=== PATIENT | male | born 1980 | race Caucasian/White ===

== ENCOUNTER 2017-02-01 16:34 | Inpatient (IN) | payer OTHER ==
[2017-02-01 18:47] VITALS: BMI 28.1
--- NOTE | 2017-02-01 20:15 | HP ---
CIWA Score - CIWA Score Nausea/Vomitin-Mild Nausea/No Vomiting Muscle Tremors: 2 Anxiety: 2 Agitation: 2 Paroxysmal Sweats: 2 Orientation: 0-Oriented Tacttile Disturbances: 0-None Auditory Disturbances: 2-Mild Harshness/Frighten Visual Disturbances: 1-Very Mild Sensitivity Headache: 1-Very Mild CIWA-Ar Total Score: 13 Admission ROS BHS - HPI Chief Complaint: WITHDRAWAL SYMPTOMS Allergies/Adverse Reactions: Allergies Allergy/AdvReac Type Severity Reaction Status Date / Time No Known Allergies Allergy Verified 02/01/17 19:28 History of Present Illness: 36 Y.O. MAN WITH AN EXTENSIVE HISTORY OF ALCOHOL AND COCAINE DEPENDENCE IS HERE FOR DETOX. HE REPORTS HE LAST COMPLETED DETOX A YEAR AGO AT [facility]. DOES NOT HAVE A SIGNIFICANT PERIOD OF SOBRIETY. Exam Limitations: No Limitations - Ebola screening Have you traveled outside of the country in the last 21 days: No Have you had contact with anyone from an Ebola affected area: No Have you been sick,other than usual withdrawal symptoms: No Do you have a fever: No - Review of Systems Constitutional: No Symptoms Reported EENT: reports: No Symptoms Reported Respiratory: reports: No Symptoms reported Cardiac: reports: No Symptoms Reported GI: reports: No Symptoms Reported : reports: No Symptoms Reported Musculoskeletal: reports: No Symptoms Reported Integumentary: reports: No Symptoms Reported Neuro: reports: Tremors Endocrine: reports: No Symptoms Reported Hematology: reports: No Symptoms Reported Psychiatric: reports: Mood/Affect Appropiate, Orientated x3, Depressed Other Systems: Reviewed and Negative Patient History - Patient Medical History Hx Anemia: No Hx Asthma: No Hx Chronic Obstructive Pulmonary Disease (COPD): No Hx Cancer: No Hx Cardiac Disorders: No Hx Congestive Heart Failure: No Hx Hypertension: No Hx Hypercholesterolemia: No Hx Pacemaker: No HX Cerebrovascular Accident: No Hx Seizures: No Hx Diabetes: No Hx Gastrointestinal Disorders: Yes (CROHN'S DISEASE) Hx Liver Disease: No Hx Genitourinary Disorders: No Hx Sexually Transmitted Disorders: No (SYPHYLIS 2013) Hx Renal Disease (ESRD): No Hx Thyroid Disease: No Hx Human Immunodeficiency Virus (HIV): No Hx Hepatitis C: No Hx Depression: Yes Hx Suicide Attempt: No Hx Bipolar Disorder: Yes Hx Schizophrenia: No - Patient Surgical History Past Surgical History: Yes Hx Neurologic Surgery: No Hx Cataract Extraction: No Hx Cardiac Surgery: No Hx Lung Surgery: No Hx Breast Surgery: No Hx Breast Biopsy: No Hx Abdominal Surgery: No Hx Appendectomy: No Hx Cholecystectomy: No Hx Genitourinary Surgery: No Hx Section: No Hx Orthopedic Surgery: Yes (RT. KNEE SURGERY - SEVERAL YRS. AGO) Anesthesia Reaction: No - PPD History Previous Implant?: Yes Documented Results: Negative w/o proof Date: 05/24/13 PPD to be Administered?: Yes - Reproductive History Patient is a Female of Child Bearing Age (11 -55 yrs old): No - Smoking Cessation Smoking history: Current every day smoker Have you smoked in the past 12 months: Yes Aproximately how many cigarettes per day: 20 Hx Chewing Tobacco Use: No Initiated information on smoking cessation: Yes 'Breaking Loose' booklet given: 02/01/17 - Substance & Tx. History Hx Alcohol Use: Yes Hx Substance Use: Yes Substance Use Type: Alcohol, Cocaine Hx Substance Use Treatment: Yes (DETOX AND REHAB: 2016 AT [facility] ) - Substances Abused Alcohol Route: Oral Frequency: Daily Amount used: liquor- 2 pints, Age of first use: 16 Date of Last Use: 01/31/17 Cocaine Route: Inhalation Frequency: Daily Amount used: $100 Age of first use: 21 Date of Last Use: 01/31/17 Family Disease History - Family Disease History Family History: Unremarkable Admission Physical Exam S - Vital Signs Vital Signs: Vital Signs - 24 hr 02/01/17 18:45 Temperature 96.8 F L Pulse Rate 76 Respiratory 18 Rate Blood Pressure 140/84 - Physical General Appearance: Yes: No Apparent Distress, Nourished, Appropriately Dressed HEENTM: Yes: Hearing grossly Normal, Normocephalic, Normal Voice Respiratory: Yes: Chest Non-Tender, Lungs Clear, Normal Breath Sounds, No Respiratory Distress, No Accessory Muscle Use Neck: Yes: No masses,lesions,Nodules Breast: Yes: Breast Exam Deferred Cardiology: Yes: Regular Rhythm, Regular Rate Abdominal: Yes: Normal Bowel Sounds, Non Tender Genitourinary: Yes: Other (NO COMPLAINTS REPORTED) Back: Yes: Normal Inspection Musculoskeletal: Yes: full range of Motion, Gait Steady, Pelvis Stable Extremities: Yes: Normal Inspection, Normal Range of Motion, Non-Tender Neurological: Yes: Fully Oriented, Alert, Motor Strength 5/5, Normal Mood/Affect , Normal Response Integumentary: Yes: Normal Color, Dry, Warm Lymphatic: Yes: Within Normal Limits - Diagnostic (1) Crohns disease Current Visit: No Status: Chronic (2) Alcohol dependence with uncomplicated withdrawal Current Visit: Yes Status: Chronic (3) Cocaine dependence Current Visit: Yes Status: Chronic (4) Nicotine dependence Current Visit: Yes Status: Chronic Cleared for Admission [facility] - Detox or Rehab [facility] Level of Care: Medically Managed Detox Regimen/Protocol: Librium S Breath Alcohol Content Breath Alcohol Content: 0 Urine Drug Screen - Results Drug Screen Negative: Yes
[2017-02-01] MEDS ORDERED: ACETAMINOPHEN 325 MG TABLET (FP) PO PRN (20:23)
[2017-02-01] MEDS ORDERED: hydrOXYzine PAMOATE 50 MG CAPSULE (FP) PO PRN (20:23)
[2017-02-01] MEDS ORDERED: MAGNESIUM HYDROX 2400MG/30ML ORAL SUSPENSION 30 ML CUP PO PRN (20:23)
[2017-02-01] MEDS ORDERED: MAGNESIUM CITRATE 300 ML BOTTLE PO PRN (20:23)
[2017-02-01] MEDS ORDERED: chlordiazePOXIDE HCL 25 MG CAPSULE PO ONE (20:23)
[2017-02-01] MEDS ORDERED: LOPERAMIDE HCL 2 MG CAPSULE PO PRN (20:23)
[2017-02-01] MEDS ORDERED: chlordiazePOXIDE HCL 25 MG CAPSULE PO PRN (20:23)
[2017-02-01] MEDS ORDERED: guaiFENesin/D-METHORPHAN HB 10 ML UNIT-DOSE CUPS PO PRN (20:23)
[2017-02-01] MEDS ORDERED: MENTHOL/PHENOL 1 EACH UD MM PRN (20:23)
[2017-02-01] MEDS ORDERED: NICOTINE POLACRILEX 2 MG GUM BUC PRN (20:23)
[2017-02-01] MEDS ORDERED: IBUPROFEN 400 MG TABLET (FP) PO PRN (20:23)
[2017-02-01] MEDS: THIAMINE HCL 100 MG TABLET (FP) PO SCH (21:42)
[2017-02-01] MEDS: P-EPHED 60MG/TRIPROLIDI 2.5MG TABLET PO PRN (21:44)
[2017-02-01] MEDS: diphenhydrAMINE HCL 50 MG CAPSULE PO PRN (22:00)
[2017-02-01] MEDS: chlordiazePOXIDE HCL 25 MG CAPSULE PO SCH (22:26)
[2017-02-01 23:13] LABS: URINE APPEARANCE CLEAR; URINE BILIRUBIN NEGATIVE (NEGATIVE); URINE BLOOD NEGATIVE (NEGATIVE); URINE COLOR YELLOW; URINE GLUCOSE (UA) NEGATIVE (NEGATIVE); URINE KETONE NEGATIVE (NEGATIVE); URINE NITRITE NEGATIVE (NEGATIVE); URINE PROTEIN NEGATIVE (NEGATIVE); URINE UROBILINOGEN NEGATIVE mg/dL (0.2-1.0)
[2017-02-02] MEDS: chlordiazePOXIDE HCL 25 MG CAPSULE PO SCH ×4 (06:03→22:11)
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
[2017-02-02] MEDS: ESCITALOPRAM OXALATE 10 MG TABLET (FP) PO SCH (10:11)
[2017-02-02] MEDS: NICOTINE 21 MG/24 HOURS TOPICAL PATCH TD SCH (10:12)
[2017-02-02] MEDS: PRENATAL VITAMINS W/ FOLIC ACID TABLET (FP) PO SCH (10:12)
[2017-02-02 10:17] LABS: MCH 29.8 pg (25.7-33.7); MCHC 32.3 g/dl (32.0-35.9); MEAN CELL VOLUME 92.1 fl (80-96); MEAN PLT VOLUME 8.1 fl (7.5-11.1); PLATELET COUNT 312 K/MM3 (134-434); RDW 13.5 % (11.9-15.9); WHITE BLOOD COUNT 10.7 K/mm3 (4.0-10.0)
[2017-02-02 10:25] LABS: ALBUMIN 3.3 g/dl (3.4-5.0); ALK PHOS 84 U/L (45-117); ANION GAP 10 (8-16); BILIRUBIN,TOTAL 0.4 mg/dL (0.2-1.0); CALCIUM 8.6 mg/dL (8.5-10.1); CO2 26 mmol/L (21-32); CREATININE 0.8 mg/dL (0.7-1.3); GLUCOSE,RANDOM 101 mg/dL (74-106); SGOT/AST 17 U/L (15-37); SGPT/ALT 31 U/L (12-78); TOT PROT 6.8 g/dl (6.4-8.2)
--- NOTE | 2017-02-02 10:31 | PN ---
[facility] CIWA - CIWA Score Nausea/Vomitin-No Nausea/No Vomiting Muscle Tremors: 4-Moderate,w/Arms Extend Anxiety: 4-Mod. Anxious/Guarded Agitation: 4-Moderately Restless Paroxysmal Sweats: 1-Minimal Palms Moist Orientation: 0-Oriented Tacttile Disturbances: 3-Moderate Itch/Numb/Burn Auditory Disturbances: 0-None Visual Disturbances: 0-None Headache: 0-None Present CIWA-Ar Total Score: 16 BHS Progress Note (SOAP) Subjective: ANXIETY,SWEATS,FATIGUE. Objective: 02/02/17 10:30 Vital Signs Temperature 97.8 F 02/02/17 09:55 Pulse Rate 71 02/02/17 09:55 Respiratory Rate 20 02/02/17 09:55 Blood Pressure 113/76 02/02/17 09:55 O2 Sat by Pulse Oximetry (%) Laboratory Last Values WBC 10.7 K/mm3 (4.0-10.0) H 02/02/17 07:00 RBC 4.53 M/mm3 (4.00-5.60) 02/02/17 07:00 Hgb 13.5 GM/dL (11.7-16.9) 02/02/17 07:00 Hct 41.7 % (35.4-49) 02/02/17 07:00 MCV 92.1 fl (80-96) 02/02/17 07:00 MCH 29.8 pg (25.7-33.7) 02/02/17 07:00 MCHC 32.3 g/dl (32.0-35.9) 02/02/17 07:00 RDW 13.5 % (11.9-15.9) 02/02/17 07:00 Plt Count 312 K/MM3 (134-434) 02/02/17 07:00 MPV 8.1 fl (7.5-11.1) 02/02/17 07:00 Sodium 138 mmol/L (136-145) 02/02/17 07:00 Potassium 4.0 mmol/L (3.5-5.1) 02/02/17 07:00 Chloride 102 mmol/L (98-107) 02/02/17 07:00 Carbon Dioxide 26 mmol/L (21-32) 02/02/17 07:00 Anion Gap 10 (8-16) 02/02/17 07:00 BUN 18 mg/dL (7-18) 02/02/17 07:00 Creatinine 0.8 mg/dL (0.7-1.3) 02/02/17 07:00 Creat Clearance w eGFR > 60 (>60) 02/02/17 07:00 Random Glucose 101 mg/dL (74-106) D 02/02/17 07:00 Calcium 8.6 mg/dL (8.5-10.1) 02/02/17 07:00 Total Bilirubin 0.4 mg/dL (0.2-1.0) D 02/02/17 07:00 AST 17 U/L (15-37) D 02/02/17 07:00 ALT 31 U/L (12-78) D 02/02/17 07:00 Alkaline Phosphatase 84 U/L (45-117) D 02/02/17 07:00 Total Protein 6.8 g/dl (6.4-8.2) 02/02/17 07:00 Albumin 3.3 g/dl (3.4-5.0) L 02/02/17 07:00 Urine Color Yellow 02/01/17 23:00 Urine Appearance Clear 02/01/17 23:00 Urine pH 6.0 (5.0-8.0) 02/01/17 23:00 Urine Protein Negative (NEGATIVE) 02/01/17 23:00 Urine Glucose (UA) Negative (NEGATIVE) 02/01/17 23:00 Urine Ketones Negative (NEGATIVE) 02/01/17 23:00 Urine Blood Negative (NEGATIVE) 02/01/17 23:00 Urine Nitrite Negative (NEGATIVE) 02/01/17 23:00 Urine Bilirubin Negative (NEGATIVE) 02/01/17 23:00 Urine Urobilinogen Negative mg/dL (0.2-1.0) 02/01/17 23:00 Assessment: 02/02/17 10:31 WITHDRAWAL SX Plan: CONTINUE DETOX
[2017-02-02 11:05] LABS: URINE LEUK ESTERASE Negative (NEGATIVE)
[2017-02-02 11:21] LABS: HIV 1 & 2 AB NEGATIVE; HIV 1 AGp24 NEGATIVE
[2017-02-02] MEDS: PANTOPRAZOLE 40 MG TABLET (FP) PO SCH (13:03)
[2017-02-02] MEDS: QUEtiapine FUMARATE 25 MG TABLET (FP) PO SCH (22:11)
[2017-02-02] MEDS: THIAMINE HCL 100 MG TABLET (FP) PO SCH (22:11)
[2017-02-02] MEDS: diphenhydrAMINE HCL 50 MG CAPSULE PO PRN (22:12)
[2017-02-02] MEDS: P-EPHED 60MG/TRIPROLIDI 2.5MG TABLET PO PRN (22:44)
[2017-02-03] MEDS: chlordiazePOXIDE HCL 25 MG CAPSULE PO SCH ×3 (06:27→17:36)
[2017-02-03] MEDS: PANTOPRAZOLE 40 MG TABLET (FP) PO SCH (10:18)
[2017-02-03] MEDS: NICOTINE 21 MG/24 HOURS TOPICAL PATCH TD SCH (10:18)
[2017-02-03] MEDS: PRENATAL VITAMINS W/ FOLIC ACID TABLET (FP) PO SCH (10:18)
[2017-02-03] MEDS: ESCITALOPRAM OXALATE 10 MG TABLET (FP) PO SCH (10:18)
--- NOTE | 2017-02-03 10:33 | PN ---
[facility] CIWA - CIWA Score Nausea/Vomitin-No Nausea/No Vomiting Muscle Tremors: 4-Moderate,w/Arms Extend Anxiety: 4-Mod. Anxious/Guarded Agitation: 4-Moderately Restless Paroxysmal Sweats: 1-Minimal Palms Moist Orientation: 0-Oriented Tacttile Disturbances: 3-Moderate Itch/Numb/Burn Auditory Disturbances: 0-None Visual Disturbances: 0-None Headache: 0-None Present CIWA-Ar Total Score: 16 BHS Progress Note (SOAP) Subjective: ANXIETY,SWEATS,FATIGUE. Objective: 02/03/17 10:32 Vital Signs Temperature 96.1 F L 02/03/17 09:42 Pulse Rate 79 02/03/17 09:42 Respiratory Rate 18 02/03/17 09:42 Blood Pressure 106/64 02/03/17 09:42 O2 Sat by Pulse Oximetry (%) Laboratory Last Values WBC 10.7 K/mm3 (4.0-10.0) H 02/02/17 07:00 RBC 4.53 M/mm3 (4.00-5.60) 02/02/17 07:00 Hgb 13.5 GM/dL (11.7-16.9) 02/02/17 07:00 Hct 41.7 % (35.4-49) 02/02/17 07:00 MCV 92.1 fl (80-96) 02/02/17 07:00 MCH 29.8 pg (25.7-33.7) 02/02/17 07:00 MCHC 32.3 g/dl (32.0-35.9) 02/02/17 07:00 RDW 13.5 % (11.9-15.9) 02/02/17 07:00 Plt Count 312 K/MM3 (134-434) 02/02/17 07:00 MPV 8.1 fl (7.5-11.1) 02/02/17 07:00 Sodium 138 mmol/L (136-145) 02/02/17 07:00 Potassium 4.0 mmol/L (3.5-5.1) 02/02/17 07:00 Chloride 102 mmol/L (98-107) 02/02/17 07:00 Carbon Dioxide 26 mmol/L (21-32) 02/02/17 07:00 Anion Gap 10 (8-16) 02/02/17 07:00 BUN 18 mg/dL (7-18) 02/02/17 07:00 Creatinine 0.8 mg/dL (0.7-1.3) 02/02/17 07:00 Creat Clearance w eGFR > 60 (>60) 02/02/17 07:00 Random Glucose 101 mg/dL (74-106) D 02/02/17 07:00 Calcium 8.6 mg/dL (8.5-10.1) 02/02/17 07:00 Total Bilirubin 0.4 mg/dL (0.2-1.0) D 02/02/17 07:00 AST 17 U/L (15-37) D 02/02/17 07:00 ALT 31 U/L (12-78) D 02/02/17 07:00 Alkaline Phosphatase 84 U/L (45-117) D 02/02/17 07:00 Total Protein 6.8 g/dl (6.4-8.2) 02/02/17 07:00 Albumin 3.3 g/dl (3.4-5.0) L 02/02/17 07:00 Urine Color Yellow 02/01/17 23:00 Urine Appearance Clear 02/01/17 23:00 Urine pH 6.0 (5.0-8.0) 02/01/17 23:00 Ur Specific [place] 1.020 (1.005-1.025) 02/01/17 23:00 Urine Protein Negative (NEGATIVE) 02/01/17 23:00 Urine Glucose (UA) Negative (NEGATIVE) 02/01/17 23:00 Urine Ketones Negative (NEGATIVE) 02/01/17 23:00 Urine Blood Negative (NEGATIVE) 02/01/17 23:00 Urine Nitrite Negative (NEGATIVE) 02/01/17 23:00 Urine Bilirubin Negative (NEGATIVE) 02/01/17 23:00 Urine Urobilinogen Negative mg/dL (0.2-1.0) 02/01/17 23:00 Ur Leukocyte Esterase Negative (NEGATIVE) 02/01/17 23:00 RPR Titer Nonreactive (NONREACTIVE) 02/02/17 07:00 Hepatitis C Antibody <0.1 s/co ratio (0.0-0.9) 02/01/17 07:00 HIV 1&2 Antibody Screen Negative 02/02/17 07:00 HIV P24 Antigen Negative 02/02/17 07:00 Assessment: 02/03/17 10:32 WITHDRAWAL SX Plan: CONTINUE DETOX
--- NOTE | 2017-02-03 10:43 | EKG ---
Test Reason : Blood Pressure : / mmHG Vent. Rate : 077 BPM Atrial Rate : 077 BPM P-R Int : 138 ms QRS Dur : 074 ms QT Int : 370 ms P-R-T Axes : 051 015 026 degrees QTc Int : 418 ms NORMAL SINUS RHYTHM POSSIBLE LEFT ATRIAL ENLARGEMENT BORDERLINE ECG NO PREVIOUS ECGS AVAILABLE Confirmed by GENET HAGEN, SRI ([id number]) on 02/03/2017 10:43:38 AM Referred By: Confirmed By:SRI D ELEÓN MD
[2017-02-03] MEDS: MAG HYDROX/AL HYDROX/SIMETH 30 ML UNIT-DOSE CUP PO PRN (17:38)
[2017-02-03] MEDS: P-EPHED 60MG/TRIPROLIDI 2.5MG TABLET PO PRN (17:38)
[2017-02-03] MEDS: THIAMINE HCL 100 MG TABLET (FP) PO SCH (22:18)
[2017-02-03] MEDS: QUEtiapine FUMARATE 25 MG TABLET (FP) PO SCH (22:18)
[2017-02-03] MEDS: chlordiazePOXIDE 5 MG CAPSULE PO SCH (22:19)
[2017-02-03] MEDS: diphenhydrAMINE HCL 50 MG CAPSULE PO PRN (22:20)
[2017-02-04] MEDS: chlordiazePOXIDE 5 MG CAPSULE PO SCH ×3 (05:34→17:20)
[2017-02-04] MEDS: ESCITALOPRAM OXALATE 10 MG TABLET (FP) PO SCH (10:22)
[2017-02-04] MEDS: NICOTINE 21 MG/24 HOURS TOPICAL PATCH TD SCH (10:22)
[2017-02-04] MEDS: PRENATAL VITAMINS W/ FOLIC ACID TABLET (FP) PO SCH (10:22)
[2017-02-04] MEDS: PANTOPRAZOLE 40 MG TABLET (FP) PO SCH (10:22)
--- NOTE | 2017-02-04 10:28 | PN ---
BHS Progress Note (SOAP) Subjective: DECREASED ANXIETY,SWEATS,IRRITABILITY. Objective: 02/04/17 10:28 Vital Signs Temperature 97.1 F L 02/04/17 09:38 Pulse Rate 82 02/04/17 09:38 Respiratory Rate 18 02/04/17 09:38 Blood Pressure 98/72 02/04/17 09:38 O2 Sat by Pulse Oximetry (%) Laboratory Last Values WBC 10.7 K/mm3 (4.0-10.0) H 02/02/17 07:00 RBC 4.53 M/mm3 (4.00-5.60) 02/02/17 07:00 Hgb 13.5 GM/dL (11.7-16.9) 02/02/17 07:00 Hct 41.7 % (35.4-49) 02/02/17 07:00 MCV 92.1 fl (80-96) 02/02/17 07:00 MCH 29.8 pg (25.7-33.7) 02/02/17 07:00 MCHC 32.3 g/dl (32.0-35.9) 02/02/17 07:00 RDW 13.5 % (11.9-15.9) 02/02/17 07:00 Plt Count 312 K/MM3 (134-434) 02/02/17 07:00 MPV 8.1 fl (7.5-11.1) 02/02/17 07:00 Sodium 138 mmol/L (136-145) 02/02/17 07:00 Potassium 4.0 mmol/L (3.5-5.1) 02/02/17 07:00 Chloride 102 mmol/L (98-107) 02/02/17 07:00 Carbon Dioxide 26 mmol/L (21-32) 02/02/17 07:00 Anion Gap 10 (8-16) 02/02/17 07:00 BUN 18 mg/dL (7-18) 02/02/17 07:00 Creatinine 0.8 mg/dL (0.7-1.3) 02/02/17 07:00 Creat Clearance w eGFR > 60 (>60) 02/02/17 07:00 Random Glucose 101 mg/dL (74-106) D 02/02/17 07:00 Calcium 8.6 mg/dL (8.5-10.1) 02/02/17 07:00 Total Bilirubin 0.4 mg/dL (0.2-1.0) D 02/02/17 07:00 AST 17 U/L (15-37) D 02/02/17 07:00 ALT 31 U/L (12-78) D 02/02/17 07:00 Alkaline Phosphatase 84 U/L (45-117) D 02/02/17 07:00 Total Protein 6.8 g/dl (6.4-8.2) 02/02/17 07:00 Albumin 3.3 g/dl (3.4-5.0) L 02/02/17 07:00 Urine Color Yellow 02/01/17 23:00 Urine Appearance Clear 02/01/17 23:00 Urine pH 6.0 (5.0-8.0) 02/01/17 23:00 Ur Specific [place] 1.020 (1.005-1.025) 02/01/17 23:00 Urine Protein Negative (NEGATIVE) 02/01/17 23:00 Urine Glucose (UA) Negative (NEGATIVE) 02/01/17 23:00 Urine Ketones Negative (NEGATIVE) 02/01/17 23:00 Urine Blood Negative (NEGATIVE) 02/01/17 23:00 Urine Nitrite Negative (NEGATIVE) 02/01/17 23:00 Urine Bilirubin Negative (NEGATIVE) 02/01/17 23:00 Urine Urobilinogen Negative mg/dL (0.2-1.0) 02/01/17 23:00 Ur Leukocyte Esterase Negative (NEGATIVE) 02/01/17 23:00 RPR Titer Nonreactive (NONREACTIVE) 02/02/17 07:00 Hepatitis C Antibody <0.1 s/co ratio (0.0-0.9) 02/01/17 07:00 HIV 1&2 Antibody Screen Negative 02/02/17 07:00 HIV P24 Antigen Negative 02/02/17 07:00 Assessment: 02/04/17 10:28 DECREASED WITHDRAWAL SX Plan: CONTINUE DETOX
[2017-02-04] MEDS: QUEtiapine FUMARATE 25 MG TABLET (FP) PO SCH (22:21)
[2017-02-04] MEDS: chlordiazePOXIDE HCL 10 MG CAPSULE PO SCH (22:21)
[2017-02-04] MEDS: MAG HYDROX/AL HYDROX/SIMETH 30 ML UNIT-DOSE CUP PO PRN (22:21)
[2017-02-04] MEDS: diphenhydrAMINE HCL 50 MG CAPSULE PO PRN (22:21)
[2017-02-04] MEDS: THIAMINE HCL 100 MG TABLET (FP) PO SCH (22:21)
[2017-02-05] MEDS: chlordiazePOXIDE HCL 10 MG CAPSULE PO SCH ×2 (05:35→11:05)
[2017-02-05 09:58] VITALS: BP 111/76; PULSE 78; TEMP 96.8
[2017-02-05] MEDS: NICOTINE 21 MG/24 HOURS TOPICAL PATCH TD SCH (11:04)
[2017-02-05] MEDS: ESCITALOPRAM OXALATE 10 MG TABLET (FP) PO SCH (11:04)
[2017-02-05] MEDS: PRENATAL VITAMINS W/ FOLIC ACID TABLET (FP) PO SCH (11:04)
[2017-02-05] MEDS: PANTOPRAZOLE 40 MG TABLET (FP) PO SCH (11:05)
--- NOTE | 2017-02-05 13:24 | DS ---
[facility] Detox Discharge Summary Admission Date: 02/01/17 Discharge Date: 02/05/17 - History Present History: Alcohol Dependence, Cocaine Dependence Additional Comments: PATIENT GOING TO [facility] ([facility]) FOR AFTERCARE. PATIENT WAS DISCHARGED FROM DETOX UNIT IN STABLE MEDICAL CONDITION. Pertinent Past History: Crohn's Disease, Nicotine Dependence, Bipolar Disorder, Depression. - Physical Exam Results Vital Signs: Vital Signs Temperature 96.8 F L 02/05/17 09:58 Pulse Rate 78 02/05/17 09:58 Respiratory Rate 18 02/05/17 09:58 Blood Pressure 111/76 02/05/17 09:58 O2 Sat by Pulse Oximetry (%) Pertinent Admission Physical Exam Findings: WITHDRAWAL SYMPTOMS. Laboratory Tests 02/01/17 02/01/17 02/02/17 07:00 23:00 07:00 WBC RBC Hgb Hct MCV MCH MCHC RDW Plt Count MPV Sodium Potassium Chloride Carbon Dioxide Anion Gap BUN Creatinine Creat Clearance w eGFR Random Glucose Calcium Total Bilirubin AST ALT Alkaline Phosphatase Total Protein Albumin Urine Color Yellow Urine Appearance Clear Urine pH 6.0 Ur Specific [place] 1.020 Urine Protein Negative Urine Glucose (UA) Negative Urine Ketones Negative Urine Blood Negative Urine Nitrite Negative Urine Bilirubin Negative Urine Urobilinogen Negative Ur Leukocyte Esterase Negative RPR Titer Hepatitis C Antibody <0.1 HIV 1&2 Antibody Screen Negative HIV P24 Antigen Negative 02/02/17 02/02/17 02/02/17 07:00 07:00 07:00 WBC 10.7 H RBC 4.53 Hgb 13.5 Hct 41.7 MCV 92.1 MCH 29.8 MCHC 32.3 RDW 13.5 Plt Count 312 MPV 8.1 Sodium 138 Potassium 4.0 Chloride 102 Carbon Dioxide 26 Anion Gap 10 BUN 18 Creatinine 0.8 Creat Clearance w eGFR > 60 Random Glucose 101 D Calcium 8.6 Total Bilirubin 0.4 D AST 17 D ALT 31 D Alkaline Phosphatase 84 D Total Protein 6.8 Albumin 3.3 L Urine Color Urine Appearance Urine pH Ur Specific [place] Urine Protein Urine Glucose (UA) Urine Ketones Urine Blood Urine Nitrite Urine Bilirubin Urine Urobilinogen Ur Leukocyte Esterase RPR Titer Nonreactive Hepatitis C Antibody HIV 1&2 Antibody Screen HIV P24 Antigen LABS NOTED. - Treatment Hospital Course: Detox Protocol Followed, Detoxed Safely, Responded well, Discharged Condition Good, Rehab Referral Accepted Patient has Accepted a Rehab Referral to: [facility] ([facility] - Medication Discharge Medications: Ambulatory Orders Escitalopram Oxalate [Lexapro -] 20 mg PO DAILY 05/22/13 Omeprazole 20 mg PO DAILY 02/01/17 Quetiapine Fumarate [Seroquel -] 25 mg PO HS 02/01/17 - Diagnosis (1) Alcohol dependence with uncomplicated withdrawal Status: Acute (2) Bipolar disorder Status: Chronic Qualifiers: Active/Remission status: remission status unspecified Qualified Code (s): F31.9 - Bipolar disorder, unspecified; F31.9 - Bipolar disorder, unspecified; F31.9 - Bipolar disorder, unspecified; F31.9 - Bipolar disorder, unspecified (3) Cocaine dependence Status: Acute Qualifiers: Substance use status: uncomplicated Qualified Code(s): F14.20 - Cocaine dependence, uncomplicated; F14.20 - Cocaine dependence, uncomplicated; F14.20 - Cocaine dependence, uncomplicated (4) Nicotine dependence Status: Chronic Qualifiers: Nicotine product type: cigarettes Substance use status: in withdrawal Qualified Code(s): F17.213 - Nicotine dependence, cigarettes, with withdrawal; F17.213 - Nicotine dependence, cigarettes, with withdrawal (5) Crohns disease Status: Chronic Qualifiers: Gastrointestinal tract location: unspecified location Digestive disease complication type: unspecified complication Qualified Code(s): K50.919 - Crohn's disease, unspecified, with unspecified complications; K50.919 - Crohn's disease, unspecified, with unspecified complications; K50.919 - Crohn' s disease, unspecified, with unspecified complications; K50.919 - Crohn's disease, unspecified, with unspecified complications - AMA Did Patient Leave Against Medical Advice: No
== END 2017-02-05 09:15 | disposition home or self-care (01) | DRG 775 ==
LOC: YASAS 16:34 → Y3N 20:39
PROVIDERS: ADMIT Internal Medicine; ATTEND Internal Medicine
PROC: HZ2ZZZZ Detoxification Services for Substance Abuse Treatment (ICD-10-PCS; principal; 2017-02-01)
DX: F10.230 Alcohol dependence with withdrawal, uncomplicated (principal); F17.210 Nicotine dependence, cigarettes, uncomplicated; F31.9 Bipolar disorder, unspecified; K50.914 Crohn's disease, unspecified, with abscess; Z87.438 Personal history of other diseases of male genital organs
CPT/HCPCS: 36415; 80053; 81003; 85027; 86593; 86803; 87389; 93005; 93010

== ENCOUNTER 2017-05-23 17:38 | Inpatient (IN) | payer OTHER ==
[2017-05-23 18:43] VITALS: BMI 25.8
--- NOTE | 2017-05-23 19:12 | HP ---
CIWA Score - CIWA Score Nausea/Vomitin Muscle Tremors: 2 Anxiety: 3 Agitation: 3 Paroxysmal Sweats: 3 Orientation: 1-Uncertain about Date Tacttile Disturbances: 0-None Auditory Disturbances: 0-None Visual Disturbances: 0-None Headache: 0-None Present CIWA-Ar Total Score: 14 Admission ROS S - HPI Allergies/Adverse Reactions: Allergies Allergy/AdvReac Type Severity Reaction Status Date / Time No Known Allergies Allergy Verified 02/01/17 19:28 History of Present Illness: 37 year old male with a 15 yr old history alcohol, cocaine and oxycodone abuse presents here today for alcohol intoxication. pt states he had a recent 3 month period of sobriety until yesterday. Pt had detox here in the past and did rehab at [facility]. Wishes to complete rehab at [facility] again after this detox program is over. Pt has Crohn's dx for which he takes Cimzia injection twice a month, and Bipolar dx Exam Limitations: No Limitations - Ebola screening Have you traveled outside of the country in the last 21 days: No Have you had contact with anyone from an Ebola affected area: No Have you been sick,other than usual withdrawal symptoms: No Do you have a fever: No - Review of Systems Constitutional: Chills, Night Sweats, Changes in sleep, Unintentional Wgt. Loss EENT: reports: Nose Congestion Respiratory: reports: Cough (dry) Cardiac: reports: No Symptoms Reported GI: reports: No Symptoms Reported : reports: No Symptoms Reported Musculoskeletal: reports: No Symptoms Reported, Other (reports chronic fingers, knuckles, knee pain s/p Crohn's dx) Integumentary: reports: No Symptoms Reported Neuro: reports: Tremors Endocrine: reports: [place] Hematology: reports: No Symptoms Reported Psychiatric: reports: Judgement Intact, Mood/Affect Appropiate, Orientated x3, Anxious Patient History - Patient Medical History Hx Anemia: No Hx Asthma: No Hx Chronic Obstructive Pulmonary Disease (COPD): No Hx Cancer: No Hx Cardiac Disorders: No Hx Congestive Heart Failure: No Hx Hypertension: No Hx Hypercholesterolemia: No Hx Pacemaker: No HX Cerebrovascular Accident: No Hx Seizures: No Hx Diabetes: No Hx Gastrointestinal Disorders: Yes (CROHN'S DISEASE) Hx Liver Disease: No Hx Genitourinary Disorders: No Hx Sexually Transmitted Disorders: No (SYPHYLIS 2013- treated with PCN) Hx Renal Disease (ESRD): No Hx Thyroid Disease: No Hx Human Immunodeficiency Virus (HIV): No Hx Hepatitis C: No Hx Depression: Yes Hx Suicide Attempt: Yes (Superficial cuts to L arm x 3 dyas ago, currently denies HI/SI. ) Hx Bipolar Disorder: Yes (On Seroquel, Lexapro) Hx Schizophrenia: No - Patient Surgical History Past Surgical History: Yes Hx Neurologic Surgery: No Hx Cataract Extraction: No Hx Cardiac Surgery: No Hx Lung Surgery: No Hx Breast Surgery: No Hx Breast Biopsy: No Hx Abdominal Surgery: No Hx Appendectomy: No Hx Cholecystectomy: No Hx Genitourinary Surgery: No Hx Section: No Hx Orthopedic Surgery: Yes (RT. KNEE SURGERY - SEVERAL YRS. AGO) Anesthesia Reaction: No - PPD History Previous Implant?: Yes Implanted On Prior [facility] Admission?: Yes Date: 02/03/17 PPD to be Administered?: No - Smoking Cessation Smoking history: Current every day smoker Have you smoked in the past 12 months: Yes Aproximately how many cigarettes per day: 20 Hx Chewing Tobacco Use: No Initiated information on smoking cessation: Yes 'Breaking Loose' booklet given: 05/23/17 - Substance & Tx. History Hx Alcohol Use: Yes (Vodka - a litre/day, Wine - 1-2 bottle/day, [place] "few shots") Substance Use Type: Alcohol, Cocaine (5 bags/ day), Tranquilizers (xanax - 5-6 tabs a day; oxycodone - 5-6 days tabs) Family Disease History - Family Disease History Family History: Unremarkable Admission Physical Exam S - Vital Signs Vital Signs: Vital Signs - 24 hr 05/23/17 18:40 Temperature 97.7 F Pulse Rate 97 H Respiratory 18 Rate Blood Pressure 130/66 - Physical General Appearance: Yes: Moderate Distress, Anxious HEENTM: Yes: Within Normal Limits, Nasal Congestion Respiratory: Yes: Chest Non-Tender, Lungs Clear, Normal Breath Sounds, No Respiratory Distress, No Accessory Muscle Use Neck: Yes: No masses,lesions,Nodules Breast: Yes: Breast Exam Deferred Cardiology: Yes: Regular Rhythm, Regular Rate, S1, S2 Abdominal: Yes: Normal Bowel Sounds, Non Tender, Soft Genitourinary: Yes: Within Normal Limits Back: Yes: Within Normal Limits Musculoskeletal: Yes: Within Normal Limits Extremities: Yes: Other (Superficial cuts to L lower arm s/p Suicidal attempt x 3 days ago.) Integumentary: Yes: Within Normal Limits, Normal Color, Dry, Warm Lymphatic: Yes: Within Normal Limits - Diagnostic (1) Alcohol dependence with uncomplicated withdrawal Current Visit: No Status: Acute (2) Cocaine dependence Current Visit: No Status: Acute Qualifiers: Substance use status: uncomplicated Qualified Code(s): F14.20 - Cocaine dependence, uncomplicated (3) Nicotine dependence Current Visit: No Status: Chronic Qualifiers: Nicotine product type: cigarettes Substance use status: in withdrawal Qualified Code(s): F17.213 - Nicotine dependence, cigarettes, with withdrawal (4) Crohns disease Current Visit: No Status: Chronic Qualifiers: Gastrointestinal tract location: unspecified location Digestive disease complication type: unspecified complication Qualified Code(s): K50.919 - Crohn 's disease, unspecified, with unspecified complications Cleared for Admission [facility] - Detox or Rehab [facility] Level of Care: Medically Managed Detox Regimen/Protocol: Librium [facility] Breath Alcohol Content Breath Alcohol Content: 0 Urine Drug Screen - Results Drug Screen Negative: No Urine Drug Screen Results: MIRTHA-Cocaine, BZO-Benzodiazepines, TCA-Tricyclic Antidepress, OXY-Oxycodone
[2017-05-23] MEDS ORDERED: ACETAMINOPHEN 325 MG TABLET (FP) PO PRN (19:35)
[2017-05-23] MEDS ORDERED: IBUPROFEN 400 MG TABLET (FP) PO PRN (19:35)
[2017-05-23] MEDS ORDERED: MENTHOL/PHENOL 1 EACH UD MM PRN (19:35)
[2017-05-23] MEDS ORDERED: chlordiazePOXIDE HCL 25 MG CAPSULE PO PRN (19:35)
[2017-05-23] MEDS ORDERED: guaiFENesin/D-METHORPHAN HB 10 ML UNIT-DOSE CUPS PO PRN (19:35)
[2017-05-23] MEDS ORDERED: MAG HYDROX/AL HYDROX/SIMETH 30 ML UNIT-DOSE CUP PO PRN (19:35)
[2017-05-23] MEDS ORDERED: P-EPHED 60MG/TRIPROLIDI 2.5MG TABLET PO PRN (19:35)
[2017-05-23] MEDS ORDERED: MAGNESIUM HYDROX 2400MG/30ML ORAL SUSPENSION 30 ML CUP PO PRN (19:35)
[2017-05-23] MEDS ORDERED: LOPERAMIDE HCL 2 MG CAPSULE PO PRN (19:35)
[2017-05-23] MEDS ORDERED: MAGNESIUM CITRATE 300 ML BOTTLE PO PRN (19:35)
[2017-05-23] MEDS: BACITRACIN 0.9 GM PACKET TP SCH (21:31)
[2017-05-23] MEDS: THIAMINE HCL 100 MG TABLET (FP) PO SCH (21:31)
[2017-05-23] MEDS: chlordiazePOXIDE HCL 25 MG CAPSULE PO SCH (22:00)
[2017-05-23 22:29] LABS: URINE APPEARANCE CLEAR; URINE BLOOD NEGATIVE (NEGATIVE); URINE COLOR DKYELLOW; URINE GLUCOSE (UA) NEGATIVE (NEGATIVE); URINE KETONE 2+ (NEGATIVE); URINE LEUK ESTERASE NEGATIVE (NEGATIVE); URINE NITRITE NEGATIVE (NEGATIVE); URINE PROTEIN 2+ (NEGATIVE); URINE UROBILINOGEN 4.0 E.U/dl mg/dL (0.2-1.0)
[2017-05-23 22:34] LABS: EPI CELLS RARE /HPF (FEW); URINE HYALINE CAST 5 /lpf; URINE MUCUS MANY
[2017-05-24] MEDS: chlordiazePOXIDE HCL 25 MG CAPSULE PO SCH ×4 (05:28→22:01)
[2017-05-24 10:06] LABS: HEMATOCRIT 40.3 % (35.4-49); HEMOGLOBIN 13.3 GM/dL (11.7-16.9); MCH 30.5 pg (25.7-33.7); MCHC 33.1 g/dl (32.0-35.9); MEAN CELL VOLUME 92.3 fl (80-96); MEAN PLT VOLUME 7.6 fl (7.5-11.1); PLATELET COUNT 332 K/MM3 (134-434); RBC 4.36 M/mm3 (4.00-5.60); WHITE BLOOD COUNT 8.3 K/mm3 (4.0-10.0)
[2017-05-24 10:40] LABS: CHLORIDE 101 mmol/L (98-107); POTASSIUM 3.8 mmol/L (3.5-5.1); SODIUM 136 mmol/L (136-145)
[2017-05-24] MEDS: PRENATAL VITAMINS W/ FOLIC ACID TABLET (FP) PO SCH (10:46)
[2017-05-24] MEDS: BACITRACIN 0.9 GM PACKET TP SCH ×2 (10:46→22:01)
[2017-05-24 11:00] LABS: ALBUMIN 3.6 g/dl (3.4-5.0); ALK PHOS 88 U/L (45-117); ANION GAP 7 (8-16); BILIRUBIN,TOTAL 0.4 mg/dL (0.2-1.0); BLOOD UREA NITROGEN 16 mg/dL (7-18); CALCIUM 8.2 mg/dL (8.5-10.1); CO2 28 mmol/L (21-32); CREATININE 0.8 mg/dL (0.7-1.3); GLUCOSE,RANDOM 106 mg/dL (74-106); SGOT/AST 16 U/L (15-37); SGPT/ALT 21 U/L (12-78); TOT PROT 7.1 g/dl (6.4-8.2)
--- NOTE | 2017-05-24 11:38 | PN ---
[facility] CIWA - CIWA Score Nausea/Vomitin-No Nausea/No Vomiting Muscle Tremors: 4-Moderate,w/Arms Extend Anxiety: 4-Mod. Anxious/Guarded Agitation: 4-Moderately Restless Paroxysmal Sweats: 1-Minimal Palms Moist Orientation: 0-Oriented Tacttile Disturbances: 3-Moderate Itch/Numb/Burn Auditory Disturbances: 0-None Visual Disturbances: 0-None Headache: 0-None Present CIWA-Ar Total Score: 16 BHS Progress Note (SOAP) Subjective: ANXIETY,SWEATS,INTERMITTENT SLEEP.. PT REPORTS USE OF XANAX AND NON RX OXYCODONE (7 PILLS/DAY) WITHIN LAST ONE MONTH OR LESS ONLY BUT HERE TO DETOX FROM ALCOHOL. Objective: 05/24/17 11:37 Vital Signs Temperature 97.2 F L 05/24/17 09:12 Pulse Rate 76 05/24/17 09:12 Respiratory Rate 18 05/24/17 09:12 Blood Pressure 119/79 05/24/17 09:12 O2 Sat by Pulse Oximetry (%) Laboratory Last Values WBC 8.3 K/mm3 (4.0-10.0) 05/24/17 07:30 RBC 4.36 M/mm3 (4.00-5.60) 05/24/17 07:30 Hgb 13.3 GM/dL (11.7-16.9) 05/24/17 07:30 Hct 40.3 % (35.4-49) 05/24/17 07:30 MCV 92.3 fl (80-96) 05/24/17 07:30 MCH 30.5 pg (25.7-33.7) 05/24/17 07:30 MCHC 33.1 g/dl (32.0-35.9) 05/24/17 07:30 RDW 14.0 % (11.9-15.9) 05/24/17 07:30 Plt Count 332 K/MM3 (134-434) 05/24/17 07:30 MPV 7.6 fl (7.5-11.1) 05/24/17 07:30 Sodium 136 mmol/L (136-145) 05/24/17 07:30 Potassium 3.8 mmol/L (3.5-5.1) 05/24/17 07:30 Chloride 101 mmol/L (98-107) 05/24/17 07:30 Carbon Dioxide 28 mmol/L (21-32) 05/24/17 07:30 Anion Gap 7 (8-16) L 05/24/17 07:30 BUN 16 mg/dL (7-18) 05/24/17 07:30 Creatinine 0.8 mg/dL (0.7-1.3) 05/24/17 07:30 Creat Clearance w eGFR > 60 (>60) 05/24/17 07:30 Random Glucose 106 mg/dL (74-106) 05/24/17 07:30 Calcium 8.2 mg/dL (8.5-10.1) L 05/24/17 07:30 Total Bilirubin 0.4 mg/dL (0.2-1.0) 05/24/17 07:30 AST 16 U/L (15-37) 05/24/17 07:30 ALT 21 U/L (12-78) D 05/24/17 07:30 Alkaline Phosphatase 88 U/L (45-117) 05/24/17 07:30 Total Protein 7.1 g/dl (6.4-8.2) 05/24/17 07:30 Albumin 3.6 g/dl (3.4-5.0) 05/24/17 07:30 Urine Color Dkyellow 05/23/17 15:18 Urine Appearance Clear 05/23/17 15:18 Urine pH 5.0 (5.0-8.0) 05/23/17 15:18 Ur Specific [place] 1.031 (1.001-1.035) 05/23/17 15:18 Urine Protein 2+ (NEGATIVE) H 05/23/17 15:18 Urine Glucose (UA) Negative (NEGATIVE) 05/23/17 15:18 Urine Ketones 2+ (NEGATIVE) H 05/23/17 15:18 Urine Blood Negative (NEGATIVE) 05/23/17 15:18 Urine Nitrite Negative (NEGATIVE) 05/23/17 15:18 Urine Bilirubin 2.0 (NEGATIVE) 05/23/17 15:18 Urine Urobilinogen 4.0 e.u/dl mg/dL (0.2-1.0) 05/23/17 15:18 Ur Leukocyte Esterase Negative (NEGATIVE) 05/23/17 15:18 Urine WBC (Auto) 1 /hpf (3-5) 05/23/17 15:18 Urine RBC (Auto) 2 /hpf (0-3) 05/23/17 15:18 Ur Epithelial Cells Rare /HPF (FEW) 05/23/17 15:18 Hyaline Casts 5 /lpf 05/23/17 15:18 Urine Mucus Many 05/23/17 15:18 RPR Titer Nonreactive (NONREACTIVE) 05/24/17 07:30 Assessment: 05/24/17 11:37 WITHDRAWAL SX Plan: CONTINUE DETOX DIRECTED.
--- NOTE | 2017-05-24 13:09 | EKG ---
Test Reason : Blood Pressure : / mmHG Vent. Rate : 090 BPM Atrial Rate : 090 BPM P-R Int : 136 ms QRS Dur : 072 ms QT Int : 366 ms P-R-T Axes : 058 004 021 degrees QTc Int : 447 ms NORMAL SINUS RHYTHM NORMAL ECG WHEN COMPARED WITH ECG OF 01-FEB-2017 21:55, NO SIGNIFICANT CHANGE WAS FOUND Confirmed by ANTONINO TRINIDAD MD ([id number]) on 05/24/2017 1:09:33 PM Referred By: Confirmed By:ANTONINO TRINIDAD MD
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
[2017-05-24] MEDS ORDERED: ZOLPIDEM TARTRATE 5 MG TABLET PO ONE (18:38)
[2017-05-24] MEDS ORDERED: ZOLPIDEM TARTRATE 5 MG TABLET PO PRN (18:42)
[2017-05-24] MEDS ORDERED: QUEtiapine FUMARATE 100 MG TABLET (FP) PO SCH (22:00)
[2017-05-24] MEDS: THIAMINE HCL 100 MG TABLET (FP) PO SCH (22:01)
[2017-05-25] MEDS: chlordiazePOXIDE HCL 25 MG CAPSULE PO SCH ×2 (05:54→10:18)
[2017-05-25 09:12] VITALS: BP 102/71; PULSE 76; TEMP 95.3
[2017-05-25] MEDS: PRENATAL VITAMINS W/ FOLIC ACID TABLET (FP) PO SCH (10:18)
[2017-05-25] MEDS: BACITRACIN 0.9 GM PACKET TP SCH (10:18)
[2017-05-25] MEDS ORDERED: PANTOPRAZOLE 40 MG TABLET (FP) PO SCH (10:30)
--- NOTE | 2017-05-25 12:07 | DS ---
[facility] Detox Discharge Summary Admission Date: 05/23/17 Discharge Date: 05/25/17 - History Present History: Alcohol Dependence, Cocaine Dependence Additional Comments: PT DECLINED TO CONTINUE WITH DETOX STATING 'I'M DONE ' WHEN EXPLAINING TO PT DETOX PROTOCOL IS STILL ONGOING. ALERT O X 3. NAD. DENIES S/H/I AT THIS TIME. PT SPOKE WITH HIS COUNSELOR, ANJEL TEAGUE WHO REPORTS PT REFUSED TO STAY DESPITE ALL ENCOURAGEMENT TO DO SO. Pertinent Past History: GERD DEPRESSION/BIPOLAR D/O CROHNS DISEASE - Physical Exam Results Vital Signs: Vital Signs Temperature 95.3 F L 05/25/17 09:12 Pulse Rate 76 05/25/17 09:12 Respiratory Rate 18 05/25/17 09:12 Blood Pressure 102/71 05/25/17 09:12 O2 Sat by Pulse Oximetry (%) Pertinent Admission Physical Exam Findings: WITHDRAWAL SX Laboratory Last Values WBC 8.3 K/mm3 (4.0-10.0) 05/24/17 07:30 RBC 4.36 M/mm3 (4.00-5.60) 05/24/17 07:30 Hgb 13.3 GM/dL (11.7-16.9) 05/24/17 07:30 Hct 40.3 % (35.4-49) 05/24/17 07:30 MCV 92.3 fl (80-96) 05/24/17 07:30 MCH 30.5 pg (25.7-33.7) 05/24/17 07:30 MCHC 33.1 g/dl (32.0-35.9) 05/24/17 07:30 RDW 14.0 % (11.9-15.9) 05/24/17 07:30 Plt Count 332 K/MM3 (134-434) 05/24/17 07:30 MPV 7.6 fl (7.5-11.1) 05/24/17 07:30 Sodium 136 mmol/L (136-145) 05/24/17 07:30 Potassium 3.8 mmol/L (3.5-5.1) 05/24/17 07:30 Chloride 101 mmol/L (98-107) 05/24/17 07:30 Carbon Dioxide 28 mmol/L (21-32) 05/24/17 07:30 Anion Gap 7 (8-16) L 05/24/17 07:30 BUN 16 mg/dL (7-18) 05/24/17 07:30 Creatinine 0.8 mg/dL (0.7-1.3) 05/24/17 07:30 Creat Clearance w eGFR > 60 (>60) 05/24/17 07:30 Random Glucose 106 mg/dL (74-106) 05/24/17 07:30 Calcium 8.2 mg/dL (8.5-10.1) L 05/24/17 07:30 Total Bilirubin 0.4 mg/dL (0.2-1.0) 05/24/17 07:30 AST 16 U/L (15-37) 05/24/17 07:30 ALT 21 U/L (12-78) D 05/24/17 07:30 Alkaline Phosphatase 88 U/L (45-117) 05/24/17 07:30 Total Protein 7.1 g/dl (6.4-8.2) 05/24/17 07:30 Albumin 3.6 g/dl (3.4-5.0) 05/24/17 07:30 Urine Color Dkyellow 05/23/17 15:18 Urine Appearance Clear 05/23/17 15:18 Urine pH 5.0 (5.0-8.0) 05/23/17 15:18 Ur Specific [place] 1.031 (1.001-1.035) 05/23/17 15:18 Urine Protein 2+ (NEGATIVE) H 05/23/17 15:18 Urine Glucose (UA) Negative (NEGATIVE) 05/23/17 15:18 Urine Ketones 2+ (NEGATIVE) H 05/23/17 15:18 Urine Blood Negative (NEGATIVE) 05/23/17 15:18 Urine Nitrite Negative (NEGATIVE) 05/23/17 15:18 Urine Bilirubin 2.0 (NEGATIVE) 05/23/17 15:18 Urine Urobilinogen 4.0 e.u/dl mg/dL (0.2-1.0) 05/23/17 15:18 Ur Leukocyte Esterase Negative (NEGATIVE) 05/23/17 15:18 Urine WBC (Auto) 1 /hpf (3-5) 05/23/17 15:18 Urine RBC (Auto) 2 /hpf (0-3) 05/23/17 15:18 Ur Epithelial Cells Rare /HPF (FEW) 05/23/17 15:18 Hyaline Casts 5 /lpf 05/23/17 15:18 Urine Mucus Many 05/23/17 15:18 RPR Titer Nonreactive (NONREACTIVE) 05/24/17 07:30 - Treatment Hospital Course: Discharged Condition Good, Rehab Referral Accepted Patient has Accepted a Rehab Referral to: REFUSED - Medication Discharge Medications: Ambulatory Orders Escitalopram Oxalate [Lexapro -] 20 mg PO DAILY 05/22/13 Omeprazole 20 mg PO DAILY 02/01/17 Quetiapine Fumarate [Seroquel -] 200 mg PO HS 02/01/17 Quetiapine Fumarate [Seroquel -] 200 mg PO HS #30 tab 05/24/17 - Diagnosis (1) Alcohol dependence with uncomplicated withdrawal Current Visit: Yes Status: Acute (2) Crohns disease Current Visit: Yes Status: Chronic Qualifiers: Gastrointestinal tract location: unspecified location Digestive disease complication type: unspecified complication Qualified Code(s): K50.919 - Crohn 's disease, unspecified, with unspecified complications (3) Nicotine dependence Current Visit: Yes Status: Acute Qualifiers: Nicotine product type: cigarettes Substance use status: in withdrawal Qualified Code(s): F17.213 - Nicotine dependence, cigarettes, with withdrawal - AMA Did Patient Leave Against Medical Advice: Yes (AMA)
[2017-05-25] MEDS ORDERED: chlordiazePOXIDE 5 MG CAPSULE PO SCH (23:00)
[2017-05-26] MEDS ORDERED: chlordiazePOXIDE HCL 10 MG CAPSULE PO SCH (23:00)
== END 2017-05-25 12:00 | disposition left against medical advice (07) | DRG 770 ==
LOC: YASAS 17:38 → Y3N 19:33
PROVIDERS: ADMIT Internal Medicine; ATTEND Internal Medicine
PROC: HZ2ZZZZ Detoxification Services for Substance Abuse Treatment (ICD-10-PCS; principal; 2017-05-23)
DX: F10.230 Alcohol dependence with withdrawal, uncomplicated (principal); F14.20 Cocaine dependence, uncomplicated; F17.213 Nicotine dependence, cigarettes, with withdrawal; F19.24 Other psychoactive substance dependence with psychoactive substance-induced mood disorder; F60.9 Personality disorder, unspecified; F31.9 Bipolar disorder, unspecified; K50.919 Crohn's disease, unspecified, with unspecified complications; G47.00 Insomnia, unspecified; Z87.438 Personal history of other diseases of male genital organs; Z91.5 Personal history of self-harm
CPT/HCPCS: 36415; 80053; 81003; 81015; 85027; 86593; 93005; 93010